=== PATIENT | female | born 1940 | race Caucasian/White ===

== ENCOUNTER 2017-02-10 14:16 | Inpatient (IN) | payer OTHER ==
--- NOTE | 2017-02-10 14:36 | EDPHY ---
H & P Stated Complaint: L HIP PAIN, NO TRAUMA HPI/ROS: HPI CHIEF COMPLAINT: Back pain, left leg pain HISTORY OF PRESENT ILLNESS: This patient very pleasant 76-year-old female, significant past medical history for arthritis, no history of compression fractures or significant sciatica, presents emergency room 2 days of progressively worsening back pain. Describes pain as sharp stabbing down her left gluteus and down the left anterior part of her leg to her foot. Does not go to her toes. Denies leg weakness, saddle anesthesia or numbness or tingling. States the pain is great when she moves her left leg. Unable to lay flat. Called her primary care doctor referred to the emergency room for acute pain control. She did take Ibuprofen and tramadol prior to arrival however this did not help. Pain is currently 8/10. Sharp stabbing down left leg. No focal weakness, no saddle anesthesia. No signs of acute cauda equina syndrome. Denies trauma. Past Medical History: No significant medical history Past Surgical History: Right hip replacement Social History: Denies daily use of drugs alcohol tobacco products, lives locally Family History: Noncontributory ROS REVIEW OF SYSTEMS: A comprehensive 10 point review of systems is otherwise negative aside from elements mentioned in the history of present illness. Exam Constitutional triage nursing summary reviewed, vital signs reviewed, awake/ alert. Eyes normal conjunctivae and sclera, EOMI, PERRLA. HENT normal inspection, atraumatic, moist mucus membranes, no epistaxis, neck supple/ no meningismus, no raccoon eyes. Respiratory clear to auscultation bilaterally, normal breath sounds, no respiratory distress, no wheezing. Cardiovascular rate normal, regular rhythm, no murmur, no edema, distal pulses normal. Gastrointestinal soft, non-tender, no rebound, no guarding, normal bowel sounds, no distension, no pulsatile mass. Genitourinary no CVA tenderness. Musculoskeletal no midline vertebral tenderness, pain that is sharp stabbing shoots down left leg she is distally neurovascular intact good pulse, pain is worse with straight leg raise of left leg, no leg weakness. full range of motion , no calf swelling, no tenderness of extremities, no meningismus, good pulses, neurovascularly intact. Skin pink, warm, & dry, no rash, skin atraumatic. Neurologic awake, alert and oriented x 3, AAOx3, moves all 4 extremities equally, motor intact, sensory intact, CN II-XII intact, normal cerebellar, normal vision, normal speech. Psychiatric normal mood/affect. Heme/Lymph/Immune no lymphadenopathy. Differential Diagnosis: Includes but is not limited to in a particular order, nerve root compression, degenerative joint disease, compression fracture, annular tear, sciatica Medical Decision Making: Plan for this patient IV establishment, acute pain control with IV fentanyl, Zofran for nausea, the MR lumbar spine. Close re- evaluation. Re-evaluation: 1604: Patient is back from MRI as she was having nausea prior to getting the MRI. She would not lie flat the MRI they brought her back to the emergency room. Upon re-evaluation patient is complaining of nausea. Her pain is well controlled now with IV Dilaudid. She did have 1 episode of active vomiting. I have ordered her 1 L normal saline IV fluids 2.5 mg IV Valium for nausea. Will attempt to get MRI again. 1643: Patient continues to vomit she did have a brief period where she was not vomiting. I have ordered her IV Zofran. 170: Re-evaluation at this time. I have ordered this patient a 2nd L of IV fluid. She still somewhat nauseous. Waiting to get her nausea under control in order to have MRI. 181: Re-evaluation at this time. Patient was given p.o. Phenergan. She still has ongoing nausea. Due to ongoing nausea unable to lay flat MRI will need to admit her for intractable back pain. She is unable to go home 1. due to severe intractable back pain 2. ongoing nausea. I did update the patient and at bedside that will need to admit her to her nausea is relieved and then proceed with MRI. She has been here unfortunately 4 hours in the emergency room without any progression of getting an MRI this point. Her MRI was aborted due to ongoing nausea. She has had multiple rounds of IV nausea medication including multiple rounds of Zofran, p.o. Phenergan, IV Valium. Her pain has been controlled with IV fentanyl nasally and then IV Dilaudid. The Dilaudid did make her nauseous. 182: Re-evaluation at this time. Patient still has ongoing nausea. Unable to complete MRI here acutely in emergency room. Again patient has no signs of acute cauda equina. Patient need to be admitted for further nausea control pain control and further evaluation of back pain MRI. Spoke with Dr. Hall the hospitalist who accepted admission. Patient be admitted to [facility] surgical bed. I did update patient and at bedside they agree with this plan. Source: Patient - Personal History Current Tetanus Diphtheria and Acellular Pertussis (TDAP): Yes - Medical/Surgical History Other PMH: DEG DISC DISEASE,R HIP REPLACMENT - Social History Smoking Status: Never smoked Constitutional: Initial Vital Signs Temperature (C) 36.8 C 02/10/17 14:22 Heart Rate 68 02/10/17 14:22 Respiratory Rate 16 02/10/17 14:22 Blood Pressure 160/67 H 02/10/17 14:22 O2 Sat (%) 94 02/10/17 14:22 O2 Delivery Mode Nasal Cannula O2 (L/minute) 5 Allergies/Adverse Reactions: codeine Allergy (Verified 02/10/17 14:21) Sulfa (Sulfonamide Antibiotics) Allergy (Verified 02/10/17 14:21) Home Medications: Medication Instructions Recorded Estradiol 02/10/17 Medical Decision Making - Data Points Laboratory Results: Laboratory Results 02/10/17 15:00 02/10/17 15:00 02/10/17 02/10/17 15:00 15:00 WBC 11.85 10^3/uL H 10^3/uL (3.80-9.50) RBC 4.69 10^6/uL 10^6/uL (4.18-5.33) Hgb 14.0 g/dL g/dL (12.6-16.3) Hct 40.4 % % (38.0-47.0) MCV 86.1 fL fL (81.5-99.8) MCH 29.9 pg pg (27.9-34.1) MCHC 34.7 g/dL g/dL (32.4-36.7) RDW 13.6 % % (11.5-15.2) Plt Count 267 10^3/uL 10^3/uL (150-400) MPV 10.7 fL fL (8.7-11.7) Neut % (Auto) 90.0 % H % (39.3-74.2) Lymph % (Auto) 7.1 % L % (15.0-45.0) [place] % (Auto) 2.2 % L % (4.5-13.0) Eos % (Auto) 0.0 % L % (0.6-7.6) Baso % (Auto) 0.3 % % (0.3-1.7) Nucleat RBC Rel Count 0.0 % % (0.0-0.2) Absolute Neuts (auto) 10.67 10^3/uL H 10^3/uL (1.70-6.50) Absolute Lymphs (auto) 0.84 10^3/uL L 10^3/uL (1.00-3.00) Absolute Monos (auto) 0.26 10^3/uL L 10^3/uL (0.30-0.80) Absolute Eos (auto) 0.00 10^3/uL L 10^3/uL (0.03-0.40) Absolute Basos (auto) 0.03 10^3/uL 10^3/uL (0.02-0.10) Absolute Nucleated RBC 0.00 10^3/uL 10^3/uL (0-0.01) Immature Gran % 0.4 % % (0.0-1.1) Immature Gran # 0.05 10^3/uL 10^3/uL (0.00-0.10) Sodium 133 mEq/L L mEq/L (134-144) Potassium 4.1 mEq/L mEq/L (3.5-5.2) Chloride 102 mEq/L mEq/L (97-110) Carbon Dioxide 19 mEq/l L mEq/l (22-31) Anion Gap 12 mEq/L mEq/L (8-16) BUN 17 mg/dL mg/dL (7-23) Creatinine 0.7 mg/dL mg/dL (0.6-1.0) Estimated GFR > 60 Glucose 162 mg/dL H mg/dL (70-100) Calcium 9.8 mg/dL mg/dL (8.5-10.4) Medications Given: Discontinued Medications Diazepam (Valium Injection) 2.5 mg IVP EDNOW ONE Stop: 02/10/17 16:02 Last Admin: 02/10/17 16:16 Dose: 2.5 mg Fentanyl (Sublimaze) 75 mcg IVP EDNOW ONE Stop: 02/10/17 14:46 Last Admin: 02/10/17 15:00 Dose: 75 mcg Hydromorphone HCl (Dilaudid) 1 mg IVP EDNOW ONE Stop: 02/10/17 15:24 Last Admin: 02/10/17 15:29 Dose: 1 mg Sodium Chloride (Ns) 1,000 mls @ 0 mls/hr IV ONCE ONE PRN Reason: Wide Open Stop: 02/10/17 16:02 Last Admin: 02/10/17 16:16 Dose: 1,000 mls Sodium Chloride (Ns) 1,000 mls @ 0 mls/hr IV ONCE ONE PRN Reason: Wide Open Stop: 02/10/17 17:07 Last Admin: 02/10/17 17:30 Dose: 1,000 mls Ondansetron HCl (Zofran) 4 mg IVP EDNOW ONE Stop: 02/10/17 14:46 Last Admin: 02/10/17 15:00 Dose: 4 mg Ondansetron HCl (Zofran) 4 mg IVP EDNOW ONE Stop: 02/10/17 16:44 Last Admin: 02/10/17 16:45 Dose: 4 mg Promethazine HCl (Phenergan) 12.5 mg PO ONCE ONE Stop: 02/10/17 17:56 Last Admin: 02/10/17 17:55 Dose: 12.5 mg Departure - Departure Disposition: [facility] Acute Clinical Impression: Nausea Back pain Qualifiers: Back pain location: low back pain Chronicity: acute Back pain laterality: left Sciatica presence: with sciatica Sciatica laterality: sciatica of left side Qualified Code(s): M54.42 - Lumbago with sciatica, left side Condition: Fair Referrals: Naveen Hoyos MD [Primary Care Provider] - As per Instructions
[2017-02-10] MEDS ORDERED: ONDANSETRON 4 MG/2 ML VIAL IVP ONE ×3 (14:45→18:29)
[2017-02-10] MEDS ORDERED: fentaNYL 100 MCG/2 ML INJ IVP ONE ×3 (14:45→21:00)
[2017-02-10 15:18] LABS: % IMMATURE GRANULYOCYTES 0.4 % (0.0-1.1); ABSOLUTE IMMATURE GRANULOCYTES 0.05 10^3/uL (0.00-0.10); ADD DIFF? NO; ADD MORPH? NO; ADD SCAN? NO; ATYPICAL LYMPHOCYTE FLAG 0 (0-99); FRAGMENT RBC FLAG 10 (0-99); HEMATOCRIT 40.4 % (38.0-47.0); LEFT SHIFT FLG 10 (0-99); LIPEMIA HEMOLYSIS FLAG 90 (0-99); MEAN CELL HEMOGLOBIN 29.9 pg (27.9-34.1); MEAN CELL HEMOGLOBIN CONCENTR. 34.7 g/dL (32.4-36.7); MEAN CELL VOLUME 86.1 fL (81.5-99.8); MEAN PLATELET VOLUME 10.7 fL (8.7-11.7); PLATELET CLUMPS FLAG 10 (0-99); PLATELET COUNT 267 10^3/uL (150-400); RED BLOOD CELL COUNT 4.69 10^6/uL (4.18-5.33); RED CELL DISTRIBUTION WIDTH 13.6 % (11.5-15.2)
[2017-02-10] MEDS ORDERED: HYDROmorphONE/DILAUDID 1 MG/ML SYR IVP ONE (15:23)
[2017-02-10] MEDS ORDERED: HYDROmorphONE/DILAUDID 1 MG/ML SYR ONE (15:23)
[2017-02-10 15:32] LABS: ANION GAP 12 mEq/L (8-16); CALCIUM 9.8 mg/dL (8.5-10.4); CARBON DIOXIDE 19 mEq/l (22-31); CHLORIDE 102 mEq/L (97-110); CREATININE 0.7 mg/dL (0.6-1.0); GLOMERULAR FILTRATION RATE > 60; GLUCOSE 162 mg/dL (70-100); POTASSIUM 4.1 mEq/L (3.5-5.2); SODIUM 133 mEq/L (134-144)
[2017-02-10] MEDS ORDERED: DIAZEPAM 10 MG/2 ML SYR IVP ONE (16:01)
[2017-02-10] MEDS ORDERED: NS 1,000 ML IV ONE ×2 (16:01→17:06)
[2017-02-10] MEDS ORDERED: DIAZEPAM 10 MG/2 ML SYR ONE (16:02)
[2017-02-10] MEDS ORDERED: ONDANSETRON 4 MG/2 ML VIAL ONE (16:42)
[2017-02-10] MEDS ORDERED: PROMETHAZINE HCL 25 MG TAB ONE (17:50)
[2017-02-10] MEDS ORDERED: PROMETHAZINE HCL 25 MG TAB PO ONE ×2 (17:55→19:34)
[2017-02-10 19:36] VITALS: RESP 16
[2017-02-10] MEDS ORDERED: methylPREDNISolone SOD SUCC 125 MG/2 ML VIAL IVP ONE (20:56)
[2017-02-10] MEDS ORDERED: KETOROLAC 30 MG/1 ML SDV IVP ONE (20:56)
[2017-02-10] MEDS ORDERED: ONDANSETRON DISINTEGRATING 4 MG TAB PO PRN (20:58)
[2017-02-10] MEDS ORDERED: ONDANSETRON 4 MG/2 ML VIAL IVP PRN (20:58)
[2017-02-10] MEDS: ACETAMINOPHEN 500 MG TAB PO SCH (21:50)
--- NOTE | 2017-02-10 22:14 | GHP ---
[f rep st] HISTORY AND PHYSICAL DATE OF ADMISSION: 02/10/2017 HISTORY: This patient is a 76-year-old female with a history of low back pain who presents with acu tely worsening pain over the last couple of days, described as radiating down her left leg. She pena s not have weakness, but pain is too severe to walk, it is worse with leg raise. She has a history of MRIs of her low spine as recently as one year ago which showed degenerative disk disease with claudia tral canal narrowing at L4-L5 with left neuroforaminal narrowing as well. She has not had fever or chills. She does not use IV drugs. No drenching night sweats. She presented to the emergency depa rtment where MRI was attempted for the perception that she likely had L4-L5 disk herniation. She wa s too painful to lie flat for the MRI. She received some Dilaudid with subsequent nausea and vomiti ng and is now admitted for pain control. When I speak with her, her nausea is largely resolved but still somewhat present and is otherwise without specific complaints. Again, she denies IV drugs. D oes not have leg weakness. REVIEW OF SYSTEMS: Complete 10-point review of systems conducted and negative except as noted in th e HPI. PAST MEDICAL HISTORY: Osteoarthritis and degenerative disk disease. She has had a right hip replac ement. SOCIAL HISTORY: No tobacco or alcohol. Lives locally. [place]. Enjoys walking. FAMILY HISTORY: Parents are . ALLERGIES: Codeine and sulfa. HOME MEDICATIONS: Vitamin D3, estradiol, multivitamin. PHYSICAL EXAMINATION: VITAL SIGNS: Temp 36.8, blood pressure 160/67, pulse 68, breathing 16 times a minute, 94% on room air. GENERAL: No acute distress, although uncomfortable-looking. HEENT: Sc lerae anicteric. Oropharynx clear. Mucous membranes moist. NECK: Supple without lymphadenopathy or JVD. LUNGS: Clear to auscultation bilaterally. HEART: S1, S2. Not tachycardic. ABDOMEN: So ft. Nontender, nondistended. LOWER EXTREMITIES: Without edema. There is pain in her left posteri or thigh with straight leg raise. There is no midline tenderness of her spine, especially the lumba r spine, with palpation, although there is some muscle tenderness on the left paraspinal muscles in the lumbar region. NEUROLOGIC: Sensation is intact in her left lower extremity. There is no weakn ess to dorsiflexion or plantarflexion on the left side or the right side. LABORATORY DATA: White count 11.8, hematocrit 40, platelets are 267,000. Sodium 133, potassium 4.1 , chloride 102, bicarb 19, BUN 17, creatinine 0.7, glucose 162. I have discussed the case with Dr. Ronal Zacarias. I have reviewed previous records and have summa rized in the HPI. ASSESSMENT/PLAN: This is a 76-year-old female with likely L4-L5 disk herniation with subsequent sci atica. 1. Suspected disk herniation: The patient needs an MRI; it is ordered. She just needs to be comfo rtable enough to endure the test. 2. Acute low back pain: She tolerated Dilaudid poorly. I have written for IV Toradol 30 x1, IV So jair-Medrol 125 x1, p.r.n. Toradol q.6 at 15, as well as p.r.n. morphine, scheduled Tylenol and p.r.n. , low-dose scheduled Valium. I had a 20-minute discussion with her regarding these pain medications . The patient wishes to avoid heavy narcotics and obtundation. 3. Hyponatremia: This is mild, may be secondary to pain, may be her baseline. We have few priors. 4. Acidosis: It is difficult to know what to make of this. She has a moderately low bicarb. We w ill follow. 5. Prophylaxis: The patient is moderate risk. Start pharmacologic prophylaxis tomorrow. 6. Disposition: Inpatient status. /[id number]/MODL
[2017-02-11] MEDS: DIAZEPAM 2 MG TAB PO SCH ×5 (00:05→23:43)
[2017-02-11] MEDS: KETOROLAC 15 MG/1 ML SDV IVP SCH ×5 (00:06→23:43)
[2017-02-11] MEDS: ACETAMINOPHEN 500 MG TAB PO SCH ×3 (05:23→20:01)
[2017-02-11] MEDS ORDERED: Herbals/Supplements -Info Only PO SCH (09:00)
[2017-02-11] MEDS: MULTIVITAMINS 1 EACH TAB PO SCH (10:59)
[2017-02-11] MEDS: CHOLECALCIFEROL VIT D3 2,000 UNITS TAB/CAP PO SCH (10:59)
[2017-02-11] MEDS: ENOXAPARIN 40 MG/0.4 ML SYR SC SCH (12:39)
[2017-02-11] MEDS ORDERED: BISACODYL 10 MG SUPP PR PRN (13:42)
[2017-02-11] MEDS ORDERED: LACTULOSE 20 GM/30 ML UDCUP PO PRN (13:42)
[2017-02-11] MEDS ORDERED: MAGNESIUM HYDROXIDE 30 ML UDCUP PO PRN (13:42)
[2017-02-11] MEDS ORDERED: POLYETHYLENE GLYCOL 3350 17 GM PKT PO PRN (13:42)
[2017-02-11] MEDS: methylPREDNISolone 4 MG TAB PO SCH ×4 (13:51→20:03)
[2017-02-11] MEDS: HYDROCODONE/APAP 5/325 TAB PO PRN ×2 (14:02→23:42)
--- NOTE | 2017-02-11 14:05 | HOSPPROG ---
Hospitalist Progress Note Assessment/Plan: # Acute severe L4-5 spinal canal narrowing - patient with new sciatic pain MRI (personally reviewed and interpreted) shows severe narrowing at L4-L5 oxygen saturations 94% on RA - consult neurosurgery for recs - cont prn IV and PO pain meds -pT/OT # Hyponatremia - sodium 133- suspect may be volume or pain related - recheck in am # proph - lovenox # diet - regular # dispo - > 2 MN as pt requires additional diagnostic work up and supportive care I have discussed the case with NSG - they will consult with recs Subjective: pain improved on pain meds Objective: Vital Signs Temp Pulse Resp BP Pulse Ox 37.2 C 73 16 106/52 L 93 02/11/17 11:32 02/11/17 11:32 02/11/17 11:32 02/11/17 11:32 02/11/17 11:32 02/10/17 02/11/17 02/12/17 05:59 05:59 05:59 Intake Total 2400 Balance 2400 - Physical Exam Constitutional: no apparent distress Eyes: anicteric sclera Ears, Nose, Mouth, Throat: moist mucous membranes Cardiovascular: regular rate and rhythym Respiratory: no respiratory distress, no rales or rhonchi Gastrointestinal: normoactive bowel sounds, soft, non-tender abdomen Genitourinary: no bladder fullness Skin: warm, normal color Musculoskeletal: No asymmetric calves Neurologic: AAOx3, sensation intact bilaterally Psychiatric: interacting appropriately, not anxious Lymph, Heme, Immunologic: no cervical LAD ICD10 Worksheet Patient Problems: Problems Problem Status Onset Back pain Acute Nausea Acute
--- NOTE | 2017-02-11 15:01 | GCON ---
[f rep st] CONSULTATION CHIEF COMPLAINT: Low back pain, left leg pain. HISTORY OF PRESENT ILLNESS: The patient is a 76-year-old female with a history of low back pain nupur t has been off and on for 30 years. On February 09, she developed a flare-up of left lateral l eg pain. Her pain was severe, and she was evaluated in the emergency department. She was admitted for pain control. She describes pain that radiates from her low back into her left anterior lateral thigh and her anterior farias. She is not having any right leg pain. She feels like her left leg is generally weak, but she is not having any ataxia or bowel or bladder problems. She feels slightly better today with the narcotics and Toradol that she has received since her admission. PAST MEDICAL HISTORY: 1. Lumbar degenerative joint disease. 2. Osteoarthritis. PAST SURGICAL HISTORY: Status post right hip replacement. MEDICATIONS: Prior to admission are vitamin D, estradiol and a multivitamin. ALLERGIES: Are codeine and sulfa. FAMILY HISTORY: Her parents are . SOCIAL HISTORY: Patient is with grown children. She denies smoking, drinking or drug use. REVIEW OF SYSTEMS: Negative. PHYSICAL EXAM: GENERAL: Patient is a 76-year-old female lying in bed in a mild amount of stress. HEAD, EYES, EARS, NOSE, AND THROAT: Negative to drainage. EXTREMITIES: [place], warm, and dry. NEUR OLOGICAL: Patient is awake, alert, oriented x4. Pupils equal, round, reactive to light. Extraocul ar motions are intact. There is no evidence of facial droop. Tongue and uvula are midline. Spinal access muscles are intact. Her motor strength is 5/5 in her arms and legs. Her sensation is gross ly intact to light touch. Deep tendon reflexes are 3+ out of 4 in the bilateral biceps, triceps, br achioradialis, right patellar. The left patellar is 1+ out of 4 and 2+ out of 4 in the bilateral Ac hilles. There is negative Jose's with no clonus. DIAGNOSTIC STUDIES: An MRI of the lumbar spine from [facility] on 02/11/2017 shows preservation of the sagittal alignment. There are moderate multilevel degenerative changes. At L1- 2 there is [id number]-[id number] degeneration collapse of the disk space with a right far lateral disk herniation. L2-3 and L3-4 have moderate degenerative changes. At L3-4, there is moderate facet art hropathy with ligament hypertrophy, and a left-sided far lateral disk herniation that appears to cau se compression of the left L4 nerve root. L5-S1 has severe collapse of the disk space with moderate foraminal stenosis but no significant central canal stenosis. IMPRESSION: This is a 76-year-old female with low back pain and left leg radicular symptoms that ar e likely related to her L4-5 degenerative joint disease and far lateral disk herniation. She is elidia rologically stable and slightly improved with conservative care. PLAN: All the above issues were discussed in detail with the patient. This patient was seen by Dr. Kong as well. This was discussed Kenia Menjivar, patient's hospitalist as well. At this point time, we would like to start the patient on a Medrol Dosepak and have her get new x-rays of he r lumbar spine with flexion-extension views to evaluate for any translational listhesis or instabili ty. In regard to her hyperreflexia, we would like her to have an MRI of her cervical spine to evalu ate for an underlying lumbar stenosis. If she fails to improve with the Medrol Dosepak then we can consider a left L4 transforaminal epidural steroid injection. We will follow up her cervical MRI an d make further treatment recommendations as her care moves along. /[id number]/MODL
[2017-02-11] MEDS: SENNOSIDES/DOCUSATE SODIUM TAB PO SCH (20:03)
[2017-02-12] MEDS: HYDROCODONE/APAP 5/325 TAB PO PRN ×2 (05:21→12:20)
[2017-02-12] MEDS: DIAZEPAM 2 MG TAB PO SCH ×2 (05:21→12:15)
[2017-02-12] MEDS: KETOROLAC 15 MG/1 ML SDV IVP SCH ×2 (05:21→12:15)
[2017-02-12] MEDS: ACETAMINOPHEN 500 MG TAB PO SCH ×2 (05:29→07:54)
[2017-02-12 05:52] LABS: ANION GAP 6 mEq/L (8-16); CARBON DIOXIDE 26 mEq/l (22-31); CHLORIDE 104 mEq/L (97-110); CREATININE 0.9 mg/dL (0.6-1.0); GLOMERULAR FILTRATION RATE > 60; GLUCOSE 127 mg/dL (70-100); POTASSIUM 4.4 mEq/L (3.5-5.2); SODIUM 136 mEq/L (134-144)
[2017-02-12 07:13] VITALS: BP 119/71; PULSE 55; TEMP 98; O2SAT 99
[2017-02-12] MEDS: SENNOSIDES/DOCUSATE SODIUM TAB PO SCH (07:54)
[2017-02-12] MEDS: ENOXAPARIN 40 MG/0.4 ML SYR SC SCH (07:54)
[2017-02-12] MEDS: MULTIVITAMINS 1 EACH TAB PO SCH (07:55)
[2017-02-12] MEDS: CHOLECALCIFEROL VIT D3 2,000 UNITS TAB/CAP PO SCH (07:55)
[2017-02-12] MEDS: methylPREDNISolone 4 MG TAB PO SCH ×2 (07:55→12:16)
--- NOTE | 2017-02-12 09:47 | SOAPPROG ---
[facility] Progress Note Assessment/Plan: Assessment: 76 yo F with left L4 radicular symptoms that are likely related to her left L4/5 far lateral disc herniation and L4/5 spondylolisthesis Plan: neuro: stable, pain improved today with po decadron :) MRI c-spine with moderate DJD but no significant central canal stenosis x-rays with scoliosis, subtle L4/5 spondylolisthesis. PT/OT ok to dc home if pain improved patient can follow up with Dr Cormier in 2-3 weeks, please call with neuro changes patient seen by Dr Cormier 02/12/17 09:43 Subjective: leg pain better, minimal back pain Objective: Vital Signs Temp Pulse Resp BP Pulse Ox 36.7 C 55 L 16 119/71 99 02/12/17 07:12 02/12/17 07:12 02/12/17 07:12 02/12/17 07:12 02/12/17 07:12 Laboratory Results 02/12/17 04:35 02/11/17 02/12/17 02/13/17 05:59 05:59 05:59 Intake Total 2400 1350 Balance 2400 1350 AAOX4, +FC PERRL, EOMI, no facial droop 5/5 + light touch ICD10 Worksheet Patient Problems: Problems Problem Status Onset Back pain Acute Nausea Acute
--- NOTE | 2017-02-12 17:20 | GDS ---
[f rep st] DISCHARGE SUMMARY DISCHARGE DIAGNOSES: Include: 1. Acute sciatic pain. 2. Severe L4-5 spinal canal narrowing. 3. Multilevel cervical spine stenosis/narrowing secondary to degenerative changes. 4. Acute hyponatremia. HISTORY OF PRESENT ILLNESS: A 76-year-old female who presents with acute onset of left lower extrem ity pain. For details of the patient's initial presentation, please see the history and physical da jocelyn 02/10/2017. CONSULTATIVE SERVICES: Include Neurosurgery. PROCEDURES: 02/11/2017, patient had a lumbar spine MRI which showed multilevel degenerative changes with severe spinal canal narrowing at L4-L5 on 02/11/2017, patient had cervical spine MRI which donavan wed multilevel central canal stenosis, plus moderate to severe neural foraminal stenosis between C3 and C5. HOSPITAL COURSE BY ISSUE: 1. Acute sciatic pain. Patient had confirmed spinal canal narrowing on lumbar MRI. Patient was in itiated on a Medrol Dosepak with improvement in her symptoms overnight. She is being discharged on a combination of ibuprofen, Tylenol, and Medrol with p.r.n. oxycodone, home physical therapy, and fo llow with Neurosurgery in 2-3 weeks. Hopes are for nonsurgical intervention. 2. Cervical stenosis. This appears more chronic in nature. Patient did have hyperreflexia noted o n examination. Again, we will follow her symptoms on the Medrol Dosepak. She will follow with the neurosurgeons in the outpatient clinic in 2-3 weeks. 3. Acute hyponatremia thought likely secondary to hypovolemia with pain and decreased p.o. intake. The patient did receive some fluids and had normalization of her sodium on recheck. MEDICATIONS: At the time of disposition, please reference med rec printed on 02/12/2017. FOLLOWUP APPOINTMENTS: Include with her primary care provider as well as with Dr. Kong in 2-3 weeks. PENDING STUDIES: At the time of this dictation are none. TIME SPENT: I spent greater than 30 minutes in the planning and coordination of this discharge. /[id number]/MODL
[2017-02-12] MEDS ORDERED: methylPREDNISolone 4 MG TAB PO SCH (21:00)
[2017-02-13] MEDS ORDERED: methylPREDNISolone 4 MG TAB PO SCH (07:30)
[2017-02-14] MEDS ORDERED: methylPREDNISolone 4 MG TAB PO SCH (07:30)
[2017-02-14] MEDS ORDERED: ESTRADIOL VIVELLE 0.025 MG PATCH TD SCH (21:00)
[2017-02-15] MEDS ORDERED: methylPREDNISolone 4 MG TAB PO SCH (07:30)
[2017-02-16] MEDS ORDERED: methylPREDNISolone 4 MG TAB PO SCH (07:30)
== END 2017-02-12 16:20 | disposition home or self-care (01) | DRG 552 ==
LOC: F3N 19:42
PROVIDERS: ADMIT Internal Medicine; ATTEND Internal Medicine
DX: M54.32 Sciatica, left side (principal); E87.1 Hypo-osmolality and hyponatremia; M50.30 Other cervical disc degeneration, unspecified cervical region; E86.1 Hypovolemia; M51.36 Other intervertebral disc degeneration, lumbar region; Z96.641 Presence of right artificial hip joint
CPT/HCPCS: 96374; 97161-GP; 97165-GO; G8978-GP-CI; G8979-GP-CH; G8980-GP-CI; G8987-GO-CI; G8988-GO-CI; G8989-GO-CI; J1170; J1650; J1885; J2405; J3010

== ENCOUNTER 2017-02-13 02:46 | Emergency (ER) | payer OTHER ==
[2017-02-13 02:56] VITALS: TEMP 98.2
[2017-02-13] MEDS ORDERED: ACETAMINOPHEN 500 MG TAB PO ONE (03:17)
[2017-02-13] MEDS ORDERED: KETOROLAC 30 MG/1 ML SDV IVP ONE (03:17)
--- NOTE | 2017-02-13 04:36 | EDPHY ---
H & P Stated Complaint: c/o LLE pain that has become severe since being d/c'd last pm Time Seen by Provider: 02/13/17 03:08 HPI/ROS: HPI The patient presents with lower back and left leg pain which have been present for the last several days. She was discharged from the hospital yesterday after being admitted for several days for his lower back pain, thought to be related to L4-L5 disc herniation with spondylolisthesis based on MRI. Her pain was controlled in the hospital, however upon return home she had worsening pain tonight. She is feeling it mostly in her left leg, it is dull, constant, and associated with mild tingling. She does not have any weakness or bowel or bladder symptoms. She is supposed to be taking ibuprofen, Tylenol, Valium, steroids, OxyContin. She has not been taking all of her medications because she is having a hard time swallowing the pills. REVIEW OF SYSTEMS Constitutional: No fever, no chills. Eyes: No discharge. ENT: No sore throat. Cardiovascular: No chest pain, no palpitations. Respiratory: No cough, no shortness of breath. Gastrointestinal: No abdominal pain, no vomiting. Genitourinary: No hematuria. Musculoskeletal: See HPI Skin: No rashes. Neurological: No headache. PMHx: Lower back pain as detailed above Soc Hx: Lives at home with her PHYSICAL General Appearance: Alert, no distress Eyes: Pupils equal and round no pallor or injection ENT, Mouth: Mucous membranes moist Respiratory: There are no retractions, lungs are clear to auscultation Cardiovascular: Regular rate and rhythm Gastrointestinal: Abdomen is soft and non-tender, no masses, bowel sounds normal Neurological: A&O, 5/5 strength in her lower extremities which is symmetric, sensation is intact to light touch Skin: Warm and dry, no rashes Musculoskeletal: Tenderness to her left lateral paraspinals at level of L4-L5 Extremities: symmetrical, full range of motion Psychiatric: Patient is oriented X 3, there is no agitation Source: Patient Exam Limitations: No limitations - Medical/Surgical History Hx Asthma: No Hx Chronic Respiratory Disease: No Hx Diabetes: No Hx Cardiac Disease: No Hx Renal Disease: No Hx Cirrhosis: No Hx Alcoholism: No Hx HIV/AIDS: No Hx Splenectomy or Spleen Trauma: No Other PMH: DEG DISC DISEASE,R HIP REPLACMENT, hysterectomy, tonsillectomy, appendectomy, eye surg, eye lid surg - Social History Smoking Status: Never smoked Constitutional: Initial Vital Signs Temperature (C) 36.8 C 02/13/17 02:52 Heart Rate 76 02/13/17 02:52 Respiratory Rate 18 02/13/17 02:52 Blood Pressure 167/88 H 02/13/17 02:52 O2 Sat (%) 96 02/13/17 02:52 O2 Delivery Mode Room Air Allergies/Adverse Reactions: codeine Allergy (Verified 02/13/17 02:56) hydromorphone [From Dilaudid] Allergy (Verified 02/13/17 02:56) Sulfa (Sulfonamide Antibiotics) Allergy (Verified 02/13/17 02:56) Home Medications: Medication Instructions Recorded Cholecalciferol Vit D3 [Vitamin D3 2,000 units PO DAILY 02/10/17 (*)] Estradiol [Vivelle-Dot 0.025MG (*)] 0.5 patch TD SA 02/10/17 Herbals/Supplements -Info Only 1 ea PO DAILY 02/10/17 Multivitamins [Multivitamin (*)] 1 each PO DAILY 02/10/17 Acetaminophen [Tylenol ES 500 mg 1,000 mg PO Q6 tab 02/12/17 (*)] Diazepam [Valium 2 MG (*)] 2 mg PO Q6HRS #14 tab 02/12/17 Ibuprofen [Motrin (*)] 600 mg PO Q6 #30 tab 02/12/17 Sennosides/Docusate Sodium 1 - 2 tab PO BID #60 tab 02/12/17 [Senokot-S] methylPREDNISolone [Medrol Dose 4 mg PO AD #1 ea 02/12/17 Dandre] oxyCODONE IR [Oxycodone Ir (*)] 5 - 10 mg PO Q4 PRN #30 tab 02/12/17 Medical Decision Making Differential Diagnosis: This is a 76-year-old female with recent hospitalization for lower back pain with radicular symptoms. MRI was performed a few days ago which does demonstrate L4-L5 disc herniation with spondylolisthesis. This is likely the cause of her symptoms. She does not have any neurologic deficits currently. She seems to be under dosing her medication at home because of some difficulty swallowing pills. Differential diagnosis includes lower back pain related to disc herniation, lumbar radiculopathy, less likely DVT given no leg swelling. In the emergency room, patient was given a dose of Toradol IV in addition to Tylenol and her usual OxyContin. She had improvement of her pain to an acceptable level and was willing to go home. I did offer her admission, however she declined. I have instructed her to keep a detailed record of timing of her medications so she does not miss any doses. She will be discharged from the emergency room. - Data Points Medications Given: Discontinued Medications Acetaminophen (Tylenol) 1,000 mg PO EDNOW ONE Stop: 02/13/17 03:18 Last Admin: 02/13/17 03:39 Dose: 1,000 mg Ketorolac Tromethamine (Toradol) 15 mg IVP EDNOW ONE Stop: 02/13/17 03:18 Last Admin: 02/13/17 03:39 Dose: 15 mg Departure - Departure Disposition: Home, Routine, Self-Care Clinical Impression: Back pain Qualifiers: Back pain location: low back pain Chronicity: acute Back pain laterality: left Sciatica presence: with sciatica Sciatica laterality: sciatica of left side Qualified Code(s): M54.42 - Lumbago with sciatica, left side Condition: Good Instructions: Lumbar Radiculopathy (ED) Additional Instructions: Please take your medications as prescribed. You can return to the emergency room if your worse in any way. Referrals: Naveen Hoyos MD [Primary Care Provider] - As per Instructions
[2017-02-13 05:32] VITALS: BP 166/87; PULSE 74; RESP 20; O2SAT 91
== END 2017-02-13 05:32 | disposition home or self-care (01) ==
DX: M54.42 Lumbago with sciatica, left side (principal)
CPT/HCPCS: 96374; J1885

== ENCOUNTER → 2017-07-14 | Outpatient (CLI) | payer OTHER | LOC: FIMAGING 10:38 | PROVIDERS: ATTEND Internal Medicine | DX: Z12.31 Encounter for screening mammogram for malignant neoplasm of breast (principal) | CPT/HCPCS: G0202 ==

== ENCOUNTER → 2018-07-22 | Outpatient (CLI) | payer OTHER | LOC: FIMAGING 10:19 | PROVIDERS: ATTEND Internal Medicine | DX: Z12.31 Encounter for screening mammogram for malignant neoplasm of breast (principal); Z80.3 Family history of malignant neoplasm of breast ==